=== PATIENT | female | born 1950 | race Two or more races ===

== ENCOUNTER → 2018-08-16 | Day surgery (SDC) | payer MEDICARE ==
--- NOTE | 2018-08-16 13:22 | OP ---
DATE OF OPERATION: 08/16/2018 PREOPERATIVE DIAGNOSIS: Abnormal left mammography. POSTOPERATIVE DIAGNOSIS: Abnormal left mammography. PROCEDURE: Left stereotactic needle biopsy with clip. SURGEON: Chelo Kellogg MD ANESTHESIA: Local. COMPLICATIONS: None. This is a sterile procedure. INDICATION FOR PROCEDURE: Patient presented for screening mammography that noted increased microcalcifications in the upper outer left breast. My recommendation was for a needle biopsy. The procedure was discussed with all of her questions answered. PROCEDURE IN DETAIL: Patient was brought to [facility] in [place], laid prone on the Lorad table. Using the cranial approach, the calcification in the upper outer left breast was identified, and a sterile prep was obtained. A target was chosen. There was a positive stroke margin. Using Betadine and 1% lidocaine, a 10-gauge Suros device was used to take several cores from this area. The cores showed calcification within them. These were handled using classification protocol. A clip was deployed in the area. Hemostasis was assured with direct pressure. The incision was covered with Steri-Strips. She tolerated the procedure well and left the breast imaging center in good condition. CHELO KELLOGG M.D. [id number]
--- NOTE | 2018-08-17 15:39 | PATH ---
Surgical Pathology Report Patient Name: AJIT POPE [facility]. Rec. #: [id number] /Age/Gender: 1950 (Age: 67) / F Account: [id number] Location: [facility] Taken: 08/16/2018 Received: 08/16/2018 Reported: 08/17/2018 Physicians: Chelo Lazo M.D. Specimen(s) Received A: LEFT BREAST SPECIMEN WITH CALCIFICATIONS B: LEFT BREAST SPECIMEN WITHOUT CALCIFICATIONS Clinical History Mammographic findings: Microcalcification, suspicious Final Diagnosis A. BREAST, LEFT, WITH CALCIFICATIONS, STEREOTACTIC BIOPSY: DUCTAL CARCINOMA IN SITU (DCIS), SOLID TYPE, HIGH NUCLEAR GRADE WITH EXTENSIVE NECROSIS AND ASSOCIATED CALCIFICATIONS. B. BREAST, LEFT, WITHOUT CALCIFICATIONS, STEREOTACTIC BIOPSY: DUCTAL CARCINOMA IN SITU (DCIS), SOLID TYPE, HIGH NUCLEAR GRADE. Results of ER and WY studies performed on block A2 at [facility] are as follows: ER (clone [id number] mouse monoclonal antibody by Leica): 100 % nuclear staining with strong intensity (Positive). WY (clone16 mouse monoclonal antibody by Leica): 95 % nuclear staining with strong intensity (Positive). Comment: Case discussed with on 08/17/18. Positive and negative controls (internal if applicable) show appropriate results. Formalin fixation and cold ischemic times are within current ASCO/CAP recommendations for ER, WY and Her2 testing. Electronically Signed Yee Dunn M.D. Gross Description A. Received in formalin labeled "left breast with calcifications," are 6 putnam-yellow, cylindrical portions of fibroadipose tissue ranging from 0.7-2.3 cm in length and averaging 0.3 cm in diameter. The specimens are submitted in toto in 2 cassettes. B. Received in formalin labeled "left breast without calcifications," are 6 putnam-yellow, cylindrical portions of fibroadipose tissue ranging from 0.5-2.0 cm in length and averaging 0.3 cm in diameter. The specimens are submitted in toto in 2 cassettes. Time to formalin fixation: 5 minutes Total formalin fixation time: Approximately 6 hours. /08/16/2018 saudi08/16/2018
== END | disposition home or self-care (01) ==
LOC: EDSTATUS 11:00 → FMAMMOTONE 11:17
PROVIDERS: ATTEND Surgery
PROC: 0HBU3ZX Excision of Left Breast, Percutaneous Approach, Diagnostic (ICD-10-PCS; principal; 2018-08-16)
DX: D05.12 Intraductal carcinoma in situ of left breast (principal); R92.8 Other abnormal and inconclusive findings on diagnostic imaging of breast
CPT/HCPCS: 19081; 87899; 88305-TC; 88342-TC; A4648

== ENCOUNTER 2018-10-06 07:15 | Day surgery (SDC) | payer MEDICARE ==
[2018-10-05 13:17] VITALS: BMI 29.7
[2018-10-06] MEDS ORDERED: MIDAZOLAM HCL 2 MG/2 ML SINGLE DOSE VIAL ONE (14:32)
[2018-10-06] MEDS ORDERED: LIDOCAINE HCL 1%, 10 MG/ML (20ML VIAL) NR ONE ×2 (14:47)
[2018-10-06] MEDS ORDERED: ceFAZolin SODIUM 1 GM VIAL ONE (14:57)
[2018-10-06] MEDS ORDERED: SODIUM CHLORIDE 0.9% P/F 10 ML VIAL IJ ONE (14:57)
[2018-10-06] MEDS ORDERED: KETOROLAC TROMETHAMINE 30 MG/1 ML VIAL ONE (15:36)
[2018-10-06] MEDS ORDERED: oxyCODONE HCL 5 MG TABLET PO PRN (15:54)
[2018-10-06] MEDS ORDERED: ONDANSETRON 4 MG/2 ML VIAL IVPUSH PRN (15:54)
[2018-10-06] MEDS ORDERED: PROMETHAZINE HCL 25 MG/1 ML VIAL IVPUSH PRN (15:54)
[2018-10-06] MEDS ORDERED: LACTATED RINGERS SOLUTION 1,000 ML IV SCH (16:00)
[2018-10-06 18:01] VITALS: TEMP 98
[2018-10-06] MEDS ORDERED: oxyCODONE HCL 5 MG TABLET ONE (18:02)
[2018-10-06 18:42] VITALS: BP 139/60; PULSE 87
--- NOTE | 2018-10-11 14:51 | PATH ---
Surgical Pathology Report Patient Name: AJIT POPE [facility]. Rec. #: [id number] /Age/Gender: 1950 (Age: 67) / F Account: [id number] Location: [facility] SURGICAL Taken: 10/06/2018 Received: 10/06/2018 Reported: 10/11/2018 Physicians: Chelo Lazo M.D. Specimen(s) Received LEFT BREAST LUMPECTOMY Clinical History Intraductal carcinoma in situ of left breast Final Diagnosis LEFT BREAST, LUMPECTOMY: DUCTAL CARCINOMA IN SITU (DCIS), HIGH NUCLEAR GRADE, SOLID TYPE, WITH NECROSIS AND ASSOCIATE CALCIFICATIONS. LOBULAR CARCINOMA IN SITU (LCIS), CLASSICAL TYPE. SURGICAL MARGINS ARE UNINVOLVED BY DCIS. DCIS TO THE CLOSEST MARGIN (SUPERIOR MARGIN) IS 0.6 CM. REACTIVE CHANGES AT PRIOR BIOPSY SITES IDENTIFIED. THE REST OF THE BREAST TISSUE SHOW FIBROADENOMA AND FIBROCYSTIC CHANGES WITH MICROCYSTS, STROMAL FIBROSIS, AND MICROCALCIFICATIONS. PATHOLOGIC STAGE (pTNM): pTis pNx. ALSO SEE SURGICAL CANCER CASE SUMMARY FOR DCIS BELOW. Comment: Immunohistochemical stain performed (block 3) at [facility] showed the tumor cells are negative for E-Cadherin in the LCIS. Positive and negative controls (internal if applicable) show appropriate results. Comments DCIS of the Breast: Surgical Pathology Cancer Case Summary (Based on AJCC TNM 8 th edition) Procedure _x_ Excision (less than total mastectomy) Specimen Laterality _x_ Left Size (Extent) of DCIS Estimated size (extent) of DCIS (greatest dimension using gross and microscopic evaluation): at least (millimeters) 12 mm Number of blocks with DCIS: 2 Number of blocks examined: 12 Histologic Type _x_ Ductal carcinoma in situ Architectural Patterns Solid Nuclear Grade Grade III (high) Necrosis Present, focal (small foci) Margins _x_ Uninvolved by DCIS Distance from closest margin (millimeters): 6mm Specify closest margin: superior margin Regional Lymph Nodes _x_ No lymph nodes submitted or found Pathologic Stage Classification (pTNM, AJCC 8th Edition) Primary Tumor (pT) _x_ pTis (DCIS): Ductal carcinoma in situ Microcalcifications _x_ Present in DCIS _x_ Present in nonneoplastic tissue Biomarker Studies Results of ER and GA studies performed on prior biopsy ([id number]) at [facility] are as follows: ER (clone [id number] mouse monoclonal antibody by Leica): 100% nuclear staining with strong intensity (Positive). GA (clone16 mouse monoclonal antibody by Leica): 95% nuclear staining with strong intensity (Positive). Electronically Signed Jerilyn Verduzco M.D. Gross Description Received fresh on an AccuGrid, labeled "left breast lumpectomy," is a 8.5 x 7.3 x 2.3 cm. putnam-yellow, irregular, portion of fibroadipose tissue with 4 needle localization wire is present. There is a short suture marking the superior aspect and a long suture marking the lateral aspect, per the surgeon. There is no skin or nipple present. The specimen is inked as follows: Superior blue; inferior green; anterior and lateral red; medial yellow; deep black. The specimen is serially sectioned from anterior to deep. Sectioning reveals a 1.5 x 1.5 x 1.4 cm focus of firm fibrous tissue containing a whitlock metallic biopsy. The focus is 1.0 cm from the superior margin and 1.0 cm from the inferior margin. The remaining breast parenchyma displays abundant dense, white, focally firm fibrous tissue. [employer] Operator sections are submitted in 12 cassettes as follows: 1-full face section of firm fibrous tissue with biopsy clip (with superior and inferior margins); 2-additional full face section of firm fibrous tissue with biopsy clip (with superior and inferior margins); 3-4-fibrous tissue surrounding area of biopsy clip (each with superior margin); 3-6-qjietpiozh fibrous tissue each with superior margin; 8-uninvolved fibrous tissue with superior and inferior margins; 9-deep margin; 10-anterior margin; 11-medial margin; 12-lateral margin. Total formalin fixation time: Approximately 48 hours 10/06/201810/06/2018
== END 2018-10-06 19:15 | disposition home or self-care (01) ==
LOC: JASU-SURG 07:15
PROVIDERS: ATTEND Surgery
PROC: 0HBU0ZZ Excision of Left Breast, Open Approach (ICD-10-PCS; principal; 2018-10-06 12:00)
DX: D05.12 Intraductal carcinoma in situ of left breast (principal)
CPT/HCPCS: 19281; 82962; 88307-TC; 88342-TC; 94760

== ENCOUNTER 2018-10-28 15:24 | Emergency (ER) | payer MEDICARE ==
[2018-10-28 15:30] VITALS: BMI 26.2
[2018-10-28] MEDS ORDERED: KETOROLAC TROMETHAMINE 30 MG/1 ML VIAL IVPUSH ONE (16:14)
[2018-10-28 16:29] LABS: BASO % 0.7 % (0-2.0); EOS % 1.4 % (0-4.5); HEMATOCRIT 38.4 % (32.4-45.2); HEMOGLOBIN 13.3 GM/dL (10.7-15.3); LYMPH % 25.2 % (8-40); MCH 32.6 pg (25.7-33.7); MCHC 34.6 g/dl (32.0-36.0); MEAN CELL VOLUME 94.3 fl (80-96); MEAN PLT VOLUME 8.7 fl (7.5-11.1); MONO % 8.3 % (3.8-10.2); NEUT % 64.4 % (42.8-82.8); PLATELET COUNT 265 K/MM3 (134-434); RBC 4.07 M/mm3 (3.60-5.2); RDW 13.7 % (11.6-15.6)
[2018-10-28] MEDS ORDERED: KETOROLAC TROMETHAMINE 30 MG/1 ML VIAL ONE (16:30)
[2018-10-28] MEDS ORDERED: SODIUM CHLORIDE 1,000 ML IV STA (16:47)
--- NOTE | 2018-10-28 17:02 | PDOC ---
History of Present Illness - General Chief Complaint: Wound Stated Complaint: LT BREAST PAIN / BLEED Time Seen by Provider: 10/28/18 15:47 History Source: Patient - History of Present Illness Timing/Duration: other Past History - Past Medical History Allergies/Adverse Reactions: Allergies Allergy/AdvReac Type Severity Reaction Status Date / Time No Known Allergies Allergy Verified 10/28/18 15:30 Home Medications: Ambulatory Orders Aspirin [ASA -] 81 mg PO DAILY 10/05/18 Atorvastatin Ca [Lipitor] 40 mg PO HS 10/05/18 Calcium Carbonate/Vitamin D3 [Calcium 500 + Vit D3 400 Tab] 1 each PO DAILY Gabapentin 100 mg PO TID 10/05/18 Metformin HCl [Glucophage] 1,000 mg PO BID 10/05/18 Olmesartan/Hydrochlorothiazide [Benicar Hct 40-12.5 mg Tablet] 1 each PO DAILY 10/05/18 Omeprazole 20 mg PO BID 10/05/18 Sitagliptin Phosphate [Januvia -] 100 mg PO ONCE 10/05/18 Ursodiol [Actigal] 300 mg PO BID 10/05/18 Acetaminophen W/ Codeine #3 [Tylenol # 3 -] 1 - 2 tab PO Q6H PRN #30 tablet MDD 6 pills 10/06/18 Cancer: Yes (Beast ca) COPD: No Diabetes: Yes GI Disorders: Yes HTN: Yes Hypercholesterolemia: Yes - Surgical History Cholecystectomy: Yes (2004) - Suicide/Smoking/Psychosocial Hx Smoking History: Never smoked Have you smoked in the past 12 months: No Hx Alcohol Use: No Drug/Substance Use Hx: No Substance Use Type: None Hx Substance Use Treatment: No Review of Systems - Review of Systems Constitutional: No: Fever, Malaise *Physical Exam - Vital Signs Last Vital Signs Temp Pulse Resp BP Pulse Ox 97.6 F 100 H 20 173/72 H 98 10/28/18 15:27 10/28/18 15:27 10/28/18 15:27 10/28/18 15:27 10/28/18 15:27 - Physical Exam General Appearance: Yes: Appropriately Dressed. No: Apparent Distress Neck: positive: Supple Respiratory/Chest: positive: Lungs Clear, Normal Breath Sounds, Other (surgical incision visualizedto lateral aspect of L breast w/ underlying ~8x4 cm induration, no obvious fluctuance, no overlying erythema, no lymphnodes palpated ). negative: Respiratory Distress Cardiovascular: positive: Regular Rate, S1, S2 Gastrointestinal/Abdominal: positive: Soft. negative: Tender Integumentary: positive: Dry, Warm Neurologic: positive: Fully Oriented, Alert, Normal Mood/Affect Moderate Sedation - Procedure Monitoring Vital Signs: Procedure Monitoring Vital Signs Temperature 97.6 F 10/28/18 15:27 Pulse Rate 100 H 10/28/18 15:27 Respiratory Rate 20 10/28/18 15:27 Blood Pressure 173/72 H 10/28/18 15:27 O2 Sat by Pulse Oximetry (%) 98 10/28/18 15:27 ED Treatment Course - LABORATORY CBC & Chemistry Diagram: 10/28/18 16:25 10/28/18 17:30 - ADDITIONAL ORDERS Additional order review: Laboratory Results 10/28/18 16:25 Sodium Cancelled Potassium Cancelled Chloride Cancelled Carbon Dioxide Cancelled Anion Gap Cancelled BUN Cancelled Creatinine Cancelled Creat Clearance w eGFR Cancelled Random Glucose Cancelled Calcium Cancelled Total Bilirubin Cancelled AST Cancelled ALT Cancelled Alkaline Phosphatase Cancelled Total Protein Cancelled Albumin Cancelled 10/28/18 16:25 RBC 4.07 MCV 94.3 MCHC 34.6 RDW 13.7 MPV 8.7 Neutrophils % 64.4 Lymphocytes % 25.2 Monocytes % 8.3 Eosinophils % 1.4 Basophils % 0.7 - RADIOLOGY Radiology Studies Ordered: Category Date Time Status BREAST US LEFT LIMITED [US] Stat Ultrasound 10/28/18 16:13 Ordered - Medications Given in the ED: ED Medications Discontinued Medications Generic Name Dose Route Start Last Admin Trade Name Freq PRN Reason Stop Dose Admin Ketorolac Tromethamine 30 mg 10/28/18 16:14 10/28/18 16:38 Toradol Injection - IVPUSH 10/28/18 16:15 30 mg ONCE ONE Administration Medical Decision Making - Medical Decision Making 10/28/18 16:58 67 yo F, HTN, HLD, NIDDM, DCIS of L breast s/p L lumpectomy 10/06/[address] Chelo Lazo, here today with ongoing pain since procedure and for the past 3 days has noticed some bloody discharge from incision site. States that amando also feels "hard". No fever or chills See exam R/o abscess, ?hematoma -pain control -labs -US -dispo pending 10/28/18 17:48 10/28/18 17:50 Ultrasound read as possible 4 x 3 x 2 cm abscess in the 3 o'clock position to left breast. White count normal. Will contact Dr. Lazo w/ disposition 10/28/18 18:59 Dr Casper paged multiple times over several hours with no response. I contacted Dr. Mendez who gave me additional numbers to reach M.D., to no avail. At this time, patient signed out to ANDRIA Adan with plan to continue paging MD and if ultimately no answer, discuss dispo w/ admitting team *DC/Admit/Observation/Transfer Diagnosis at time of Disposition: Breast abscess - Referrals - Patient Instructions - Post Discharge Activity
[2018-10-28 18:04] LABS: ALBUMIN 4.2 g/dl (3.4-5.0); ALK PHOS 49 U/L (45-117); ANION GAP 8 MMOL/L (8-16); BILIRUBIN,TOTAL 0.3 mg/dL (0.2-1); BLOOD UREA NITROGEN 12 mg/dL (7-18); CALCIUM 9.1 mg/dL (8.5-10.1); CHLORIDE 101 mmol/L (98-107); CO2 26 mmol/L (21-32); CREATININE 0.9 mg/dL (0.55-1.3); GLUCOSE,RANDOM 201 mg/dL (74-106); SGOT/AST 15 U/L (15-37); SGPT/ALT 16 U/L (13-61); SODIUM 135 mmol/L (136-145); TOT PROT 7.6 g/dl (6.4-8.2)
[2018-10-28 19:13] LABS: INR 1.18 (0.83-1.09); PROTHROMBIN TIME (PATIENT) 13.9 SEC (9.7-13.0)
--- NOTE | 2018-10-28 19:17 | PDOC ---
*Physical Exam - Vital Signs Last Vital Signs Temp Pulse Resp BP Pulse Ox 97.6 F 100 H 20 173/72 H 98 10/28/18 15:27 10/28/18 15:27 10/28/18 15:27 10/28/18 15:27 10/28/18 15:27 - Physical Exam Comments: 10/29/18 01:35 Breast: L lateral breast with incision at the base of the breast with minimal serosanguanous discharge. No redness to the overlying skin General Appearance: Yes: Nourished, Appropriately Dressed. No: Apparent Distress Neurologic: positive: Fully Oriented, Alert, Normal Mood/Affect, Normal Response ED Treatment Course - LABORATORY CBC & Chemistry Diagram: 10/28/18 16:25 10/28/18 17:30 - ADDITIONAL ORDERS Additional order review: Laboratory Results 10/28/18 10/28/18 10/28/18 18:49 17:30 16:25 PT with INR 13.90 H INR 1.18 H Sodium 135 L Cancelled Potassium 4.0 Cancelled Chloride 101 Cancelled Carbon Dioxide 26 Cancelled Anion Gap 8 Cancelled BUN 12 Cancelled Creatinine 0.9 Cancelled Creat Clearance w eGFR > 60 Cancelled Random Glucose 201 H Cancelled Calcium 9.1 Cancelled Total Bilirubin 0.3 Cancelled AST 15 Cancelled ALT 16 Cancelled Alkaline Phosphatase 49 Cancelled Total Protein 7.6 Cancelled Albumin 4.2 Cancelled 10/28/18 16:25 RBC 4.07 MCV 94.3 MCHC 34.6 RDW 13.7 MPV 8.7 Neutrophils % 64.4 Lymphocytes % 25.2 Monocytes % 8.3 Eosinophils % 1.4 Basophils % 0.7 - Medications Given in the ED: ED Medications Discontinued Medications Generic Name Dose Route Start Last Admin Trade Name Freq PRN Reason Stop Dose Admin Sodium Chloride 1,000 mls @ 1,000 mls/hr 10/28/18 16:47 10/28/18 17:02 Normal Saline - IV 10/28/18 17:46 1,000 mls/hr ASDIR STA Administration Ketorolac Tromethamine 30 mg 10/28/18 16:14 10/28/18 16:38 Toradol Injection - IVPUSH 10/28/18 16:15 30 mg ONCE ONE Administration Medical Decision Making - Medical Decision Making 10/28/18 19:16 Sign out received from ANDRIA Storey. Currently pending call back from patient's breast surgeon for R breast abscess. Pt will need to be admitted for IV abx as pt is a a diabetic. 10/28/18 20:27 4th page sent to Dr. Cohn; no response. Will page bárbaraelo for admission. Microblog sent. 10/28/18 21:[address] Lazo. Given that the patient is one week out of surgery, US findings most likely represent a seroma. Would recommend discharge on augmentin at this time. States she will see the patient in her office on Tuesday afternoon. Admission request to [facility] cancelled. Will DC home with pain control and abx. Explained findings to patient who understands and agrees to dc planning. Return precautions given I discussed the physical exam findings, ancillary test results and final diagnoses with the patient. I answered all of the patient's questions. The patient was satisfied with the care received and felt comfortable with the discharge plan and treatment plan. The Patient agrees to follow up with the primary care physician/specialist within 24-72 hours. Return precautions were given. *DC/Admit/Observation/Transfer Diagnosis at time of Disposition: Breast pain, left - Discharge Dispostion Disposition: HOME Condition at time of disposition: Stable Decision to Admit order: No - Prescriptions Prescriptions: Amox-Tr/K Cl [Augmentin - 875Mg Tablet] 1 tab PO BID #14 tablet traMADol HCL [Ultram -] 50 mg PO BID #10 tablet MDD 2 - Referrals Referrals: Chelo Lazo MD [Staff Physician] - - Patient Instructions Printed Discharge Instructions: DI for Breast Pain (Mastalgia) Additional Instructions: You most likely have a seroma from your surgical site, or a fluid collection. It does not appear infected at this time Please take the antibiotics (Augmentin) twice a day for one week. Take this medication with food You may take tramadol twice a day as needed for pain. Do not drink alcohol or drive after taking this medication as it may make you sleepy Follow up with Dr. Lazo (your breast surgeon) on Tuesday; Please call the office in the morning. Her phone number is [phone]. Her office is located at [address] [place] [address] Return to the ED for fever, redness around the surgical site, nausea, vomiting, or if you have any changes in your symptoms Lo ms probable es que tenga un seroma de suggs sitio quirrgico o lavern recoleccin de lquido. No aparece infectada en ras momento. Por favor, tome los antibiticos (Augmentin) dos veces al da nu lavern semana. Ana ras medicamento con comida. Puede javed tramadol dos veces al da segn sea necesario para el dolor. No gustavo alcohol ni maneje despus de javed ras medicamento, ya que puede causarle sueo Brittany un seguimiento con el Dr. Lazo (suggs cirujano de senos) el lunendy; Por favor llame a la oficina en la maana. Suggs nmero de telfono es [phone]. Suggs oficina est ubicada en [address] [place] Regrese a la brianne de emergencias para marcie si tiene fiebre, enrojecimiento alrededor del sitio quirrgico, nuseas, vmitos o si tiene algn cambio en kody sntomas. - Post Discharge Activity
[2018-10-28 22:11] VITALS: BP 167/67; PULSE 85; TEMP 98
--- NOTE | 2018-10-29 09:27 | EKG ---
Test Reason : Blood Pressure : / mmHG Vent. Rate : 084 BPM Atrial Rate : 084 BPM P-R Int : 136 ms QRS Dur : 082 ms QT Int : 366 ms P-R-T Axes : 070 006 052 degrees QTc Int : 432 ms POOR DATA QUALITY, INTERPRETATION MAY BE ADVERSELY AFFECTED NORMAL SINUS RHYTHM NORMAL ECG NO PREVIOUS ECGS AVAILABLE Confirmed by Hector Santiago MD ([id number]) on 10/29/2018 9:27:22 AM Referred By: Confirmed By:Hector Santiago MD
== END 2018-10-28 22:13 | disposition home or self-care (01) ==
LOC: JER 15:24
PROC: 3E0337Z Introduction of Electrolytic and Water Balance Substance into Peripheral Vein, Percutaneous Approach (ICD-10-PCS; principal; 2018-10-28)
PROC: 3E0333Z Introduction of Anti-inflammatory into Peripheral Vein, Percutaneous Approach (ICD-10-PCS; 2018-10-28)
DX: L76.34 Postprocedural seroma of skin and subcutaneous tissue following other procedure (principal); Y83.8 Other surgical procedures as the cause of abnormal reaction of the patient, or of later complication, without mention of misadventure at the time of the procedure; C50.912 Malignant neoplasm of unspecified site of left female breast; I10 Essential (primary) hypertension; E78.00 Pure hypercholesterolemia, unspecified; E11.9 Type 2 diabetes mellitus without complications; Z79.84 Long term (current) use of oral hypoglycemic drugs
CPT/HCPCS: 36415; 71046-TC-FY; 76641-TC-LT; 80053; 85025; 85610; 86850; 86900; 86901; 93005; 93010; 96361; 96374; 99283-25; J7030